=== PATIENT | female | born 1990 | race Caucasian/White ===

== ENCOUNTER 2016-12-25 13:56 | Inpatient (IN) | payer MEDICAID ==
[~2016-12-25] VITALS: Ht 170.2 cm; Wt 62.4 kg
[2016-12-25] MEDS ORDERED: HALOPERIDOL LACTATE 5 MG/ML VIAL IM ONE (18:00)
[2016-12-25] MEDS ORDERED: LORazepam 2 MG/ML VIAL IM ONE (18:00)
[2016-12-25] MEDS ORDERED: DiphenhydrAMINE HCL 50 MG/ML VIAL IM ONE (18:00)
[2016-12-25 18:11] VITALS: BP 106/57
[2016-12-25 18:42] VITALS: BP 91/46
[2016-12-25] MEDS: ZOLPIDEM TARTRATE 10 MG TABLET PO PRN (21:04)
[2016-12-26] MEDS: LORazepam 2 MG TABLET PO PRN ×4 (04:21→20:32)
[2016-12-26] MEDS: NICOTINE 14 MG/24 HOUR PATCH TD SCH (10:10)
[2016-12-26] MEDS ORDERED: PROMETHAZINE HCL 25 MG/ML VIAL IM ONE (10:45)
[2016-12-26 16:08] VITALS: BP 108/70
[2016-12-26] MEDS: PALIPERIDONE 6 MG ER TABLET PO SCH (16:13)
[2016-12-26] MEDS ORDERED: ACETAMINOPHEN 325 MG TABLET PO PRN (19:45)
[2016-12-26] MEDS: ZOLPIDEM TARTRATE 10 MG TABLET PO PRN (21:03)
[2016-12-27 05:49] VITALS: BP 102/92
[2016-12-27 08:28] VITALS: BP 121/79
[2016-12-27] MEDS: LORazepam 2 MG TABLET PO PRN ×3 (08:57→17:31)
[2016-12-27] MEDS: NICOTINE 14 MG/24 HOUR PATCH TD SCH (08:57)
[2016-12-27] MEDS: PALIPERIDONE 6 MG ER TABLET PO SCH (08:57)
[2016-12-27] MEDS: ONDANSETRON HCL 4 MG TABLET PO PRN (17:12)
[2016-12-27 17:35] VITALS: BP 118/70
[2016-12-27] MEDS: ZOLPIDEM TARTRATE 10 MG TABLET PO PRN (21:06)
[2016-12-28] MEDS: LORazepam 2 MG TABLET PO PRN ×4 (00:37→21:54)
[2016-12-28 00:40] VITALS: BP 126/75
[2016-12-28] MEDS: PALIPERIDONE 6 MG ER TABLET PO SCH (08:17)
[2016-12-28] MEDS: NICOTINE 14 MG/24 HOUR PATCH TD SCH (08:17)
[2016-12-28 08:44] VITALS: BP 128/84
[2016-12-28 16:19] VITALS: BP_SYST 131; BP_SYST 144; BP_DIAS 76; BP_DIAS 77
[2016-12-28] MEDS ORDERED: PALI6 PO (19:06)
[2016-12-28] MEDS ORDERED: NICO14T TD (19:06)
[2016-12-28] MEDS ORDERED: ACET-2247 PO (19:06)
[2016-12-28] MEDS ORDERED: ZOLP10 PO (19:06)
[2016-12-28] MEDS ORDERED: LORA2TAB2 PO (19:06)
[2016-12-28] MEDS ORDERED: ONDA4 PO (19:06)
[2016-12-28 21:53] VITALS: BP 138/86
[2016-12-28 22:36] VITALS: BP 129/80
[2016-12-29 06:41] VITALS: BP 125/83
[2016-12-29] MEDS: LORazepam 2 MG TABLET PO PRN ×3 (08:31→20:00)
[2016-12-29] MEDS: NICOTINE 14 MG/24 HOUR PATCH TD SCH (08:31)
[2016-12-29] MEDS: PALIPERIDONE 6 MG ER TABLET PO SCH (08:31)
[2016-12-29] MEDS: AMOX TR/POT CLAV 875 MG/125 MG TABLET PO SCH ×2 (08:31→16:37)
[2016-12-29 08:37] VITALS: BP 118/63
[2016-12-29] MEDS: ONDANSETRON HCL 4 MG TABLET PO PRN (13:49)
[2016-12-29 17:07] VITALS: BP 140/84
[2016-12-30 06:10] VITALS: BP 126/72
[2016-12-30] MEDS: ONDANSETRON HCL 4 MG TABLET PO PRN (06:46)
[2016-12-30 08:22] VITALS: BP 125/82
[2016-12-30] MEDS: AMOX TR/POT CLAV 875 MG/125 MG TABLET PO SCH ×2 (08:35→16:49)
[2016-12-30] MEDS: PALIPERIDONE 6 MG ER TABLET PO SCH (08:35)
[2016-12-30] MEDS: NICOTINE 14 MG/24 HOUR PATCH TD SCH (08:35)
[2016-12-30] MEDS: LORazepam 2 MG TABLET PO PRN ×2 (10:11→16:49)
[2016-12-30 16:39] VITALS: BP 122/75
[2016-12-30] MEDS: ZOLPIDEM TARTRATE 10 MG TABLET PO PRN (21:26)
[2016-12-31 00:04] VITALS: BP 125/75
[2016-12-31] MEDS: LORazepam 2 MG TABLET PO PRN ×4 (00:04→17:53)
[2016-12-31 08:11] VITALS: BP 122/74
[2016-12-31] MEDS: PALIPERIDONE 6 MG ER TABLET PO SCH (08:40)
[2016-12-31] MEDS: AMOX TR/POT CLAV 875 MG/125 MG TABLET PO SCH ×2 (08:40→16:23)
[2016-12-31] MEDS: NICOTINE 14 MG/24 HOUR PATCH TD SCH (08:40)
[2016-12-31 16:11] VITALS: BP 102/61
[2016-12-31] MEDS: BACITRACIN 28.4 GM OINTMENT TP SCH (16:25)
[2016-12-31] MEDS: ONDANSETRON HCL 4 MG TABLET PO PRN (16:44)
[2016-12-31] MEDS: ZOLPIDEM TARTRATE 10 MG TABLET PO PRN (21:27)
[2017-01-01 05:55] VITALS: BP 110/68
[2017-01-01] MEDS: LORazepam 2 MG TABLET PO PRN ×3 (07:22→19:59)
[2017-01-01] MEDS: NICOTINE 14 MG/24 HOUR PATCH TD SCH (08:25)
[2017-01-01] MEDS: AMOX TR/POT CLAV 875 MG/125 MG TABLET PO SCH ×2 (08:25→16:43)
[2017-01-01] MEDS: PALIPERIDONE 6 MG ER TABLET PO SCH (08:25)
[2017-01-01] MEDS: BACITRACIN 28.4 GM OINTMENT TP SCH ×2 (08:26→16:43)
[2017-01-01 09:04] VITALS: BP 151/76
[2017-01-01] MEDS: ONDANSETRON HCL 4 MG TABLET PO PRN (14:43)
[2017-01-01 16:29] VITALS: BP 113/84
[2017-01-02 08:41] VITALS: BP 120/80
[2017-01-02] MEDS: PALIPERIDONE 6 MG ER TABLET PO SCH (09:48)
[2017-01-02] MEDS: AMOX TR/POT CLAV 875 MG/125 MG TABLET PO SCH ×2 (09:49→16:32)
[2017-01-02] MEDS: LORazepam 2 MG TABLET PO PRN ×3 (09:49→18:07)
[2017-01-02] MEDS: BACITRACIN 28.4 GM OINTMENT TP SCH ×2 (09:49→16:32)
[2017-01-02] MEDS: NICOTINE 14 MG/24 HOUR PATCH TD SCH (09:49)
[2017-01-02 16:43] VITALS: BP 114/65
[2017-01-02] MEDS: ONDANSETRON HCL 4 MG TABLET PO PRN (16:55)
[2017-01-02] MEDS: ZOLPIDEM TARTRATE 10 MG TABLET PO PRN (20:50)
[2017-01-03 01:53] VITALS: BP 119/71
[2017-01-03] MEDS: LORazepam 2 MG TABLET PO PRN ×4 (01:54→18:22)
[2017-01-03 07:39] LABS: BASOPHILS % (AUTO) 0.9 % (0.0-2.0); EOSINOPHILS % (AUTO) 1.1 % (1.0-6.0); HEMATOCRIT 40.2 % (36-46); HEMOGLOBIN 13.1 g/dL (12.0-16.0); LYMPHOCYTES # (AUTO) 1.7 K/uL (1.0-4.8); LYMPHOCYTES % (AUTO) 30.2 % (22.0-44.0); MEAN CORPUSCULAR HEMOGLOBIN 28.6 pg (26.0-34.0); MEAN CORPUSCULAR HGB CONC 32.6 G/dL (31.0-37.0); MEAN CORPUSCULAR VOLUME 88 fL (80-100); MONOCYTES # (AUTO) 0.4 K/uL (0.1-1.0); MONOCYTES % (AUTO) 6.5 % (2.0-9.0); NEUTROPHILS # (AUTO) 3.4 K/uL (1.8-7.7); NEUTROPHILS % (AUTO) 61.3 % (40.0-70.0); PLATELET COUNT (AUTO) 259 K/uL (150-450); RED BLOOD CELL COUNT(AUTO) 4.57 MIL/uL (4.00-5.20); RED CELL DISTRIBUTION WIDTH 13.9 % (11.5-14.5); WHITE BLOOD COUNT (AUTO) 5.5 K/uL (4.5-11.0)
[2017-01-03 08:09] LABS: ALANINE AMINOTRANSFERASE 21 U/L (12-78); ALBUMIN 3.7 g/dL (3.4-5.0); ANION GAP 9 mmol/L (8-16); ASPARTATE AMINOTRANSFERASE 12 U/L (15-37); BILIRUBIN,TOTAL 0.3 mg/dL (0.1-1.0); CALCIUM, TOTAL 9.3 mg/dL (8.8-10.5); CARBON DIOXIDE 28 mmol/L (22-29); CHLORIDE 101 mmol/L (98-107); CHOL/HDL RATIO 2.7 (3.9-5.7); GLOMERULAR FILTR. RATE CALC > 60 mL/min (>60); POTASSIUM 4.9 mmol/L (3.5-5.1); SODIUM SERUM 138 mmol/L (136-145); THYROID STIMULATING HORMONE 1.45 uIU/mL (0.36-3.74); TOTAL PROTEIN, SERUM 7.4 g/dL (6.4-8.2); UREA NITROGEN, BLOOD 12 mg/dL (7-18)
[2017-01-03 08:13] VITALS: BP 116/63
[2017-01-03 08:51] LABS: HEMOGLOBIN A1C 4.7 % (4.5-6.2)
[2017-01-03] MEDS: AMOX TR/POT CLAV 875 MG/125 MG TABLET PO SCH ×2 (09:33→16:02)
[2017-01-03] MEDS: PALIPERIDONE 6 MG ER TABLET PO SCH (09:33)
[2017-01-03] MEDS: BACITRACIN 28.4 GM OINTMENT TP SCH ×2 (09:34→16:02)
[2017-01-03] MEDS: NICOTINE 14 MG/24 HOUR PATCH TD SCH (09:34)
[2017-01-03] MEDS: ONDANSETRON HCL 4 MG TABLET PO PRN (10:27)
[2017-01-03 16:19] VITALS: BP 121/83
[2017-01-03] MEDS: ZOLPIDEM TARTRATE 10 MG TABLET PO PRN (23:10)
[2017-01-04 08:15] VITALS: BP 118/66
[2017-01-04] MEDS: PALIPERIDONE 6 MG ER TABLET PO SCH (08:27)
[2017-01-04] MEDS: LORazepam 2 MG TABLET PO PRN ×2 (08:29→14:08)
[2017-01-04] MEDS: NICOTINE 14 MG/24 HOUR PATCH TD SCH (08:30)
[2017-01-04] MEDS: BACITRACIN 28.4 GM OINTMENT TP SCH ×2 (08:30→16:39)
[2017-01-04] MEDS: AMOX TR/POT CLAV 875 MG/125 MG TABLET PO SCH ×2 (09:00→16:39)
[2017-01-04 16:06] VITALS: BP 112/84
[2017-01-04] MEDS: ZOLPIDEM TARTRATE 10 MG TABLET PO PRN (22:01)
[2017-01-04 23:56] VITALS: BP 115/73
[2017-01-04 23:58] VITALS: BP 115/73
[2017-01-05] VITALS: BP 112/84
[2017-01-05] MEDS: LORazepam 2 MG TABLET PO PRN ×2 (00:02→08:32)
[2017-01-05 02:43] VITALS: BP 115/73
[2017-01-05 08:01] VITALS: BP 102/55
[2017-01-05] MEDS: NICOTINE 14 MG/24 HOUR PATCH TD SCH (08:32)
[2017-01-05] MEDS: AMOX TR/POT CLAV 875 MG/125 MG TABLET PO SCH (08:32)
[2017-01-05] MEDS: BACITRACIN 28.4 GM OINTMENT TP SCH (08:32)
[2017-01-05] MEDS: PALIPERIDONE 6 MG ER TABLET PO SCH (08:32)
[2017-01-05] MEDS ORDERED: AMOX1TAB16 PO (10:32)
== END 2017-01-05 13:35 | disposition home or self-care (01) | DRG 750 ==
LOC: B3A 17:26 → B2S 01-04 09:11
PROVIDERS: ADMIT Psychiatry & Neurology Child & Adolescent Psychiatry; ATTEND Psychiatry & Neurology Child & Adolescent Psychiatry
DX: F25.0 Schizoaffective disorder, bipolar type (principal); F29 Unspecified psychosis not due to a substance or known physiological condition; F15.10 Other stimulant abuse, uncomplicated; F12.10 Cannabis abuse, uncomplicated; F41.9 Anxiety disorder, unspecified; F10.10 Alcohol abuse, uncomplicated; Z88.2 Allergy status to sulfonamides; Z88.8 Allergy status to other drugs, medicaments and biological substances; Z71.41 Alcohol abuse counseling and surveillance of alcoholic; Z71.51 Drug abuse counseling and surveillance of drug abuser
CPT/HCPCS: 83036; 84439; 84443; 87081; J1200; J1630; J2060; J2550; Q0162

== ENCOUNTER 2016-12-28 17:33 | Emergency (ER) | payer MEDICAID, OTHER ==
[~2016-12-28] VITALS: Ht 170.2 cm; Wt 59.1 kg
[2016-12-28] MEDS ORDERED: NICO14T TD (19:06)
[2016-12-28] MEDS ORDERED: ZOLP10 PO (19:06)
[2016-12-28] MEDS ORDERED: LORA2TAB2 PO (19:06)
[2016-12-28] MEDS ORDERED: ONDA4 PO (19:06)
[2016-12-28] MEDS ORDERED: ACET-2247 PO (19:06)
[2016-12-28] MEDS ORDERED: PALI6 PO (19:06)
[2016-12-28] MEDS ORDERED: CeFAZolin 1 GM/DEXTROSE 50 ML IV ONE (19:15)
[2016-12-28] MEDS ORDERED: SODIUM CHLORIDE 0.9% 1,000 ML IV ONE (19:15)
[2016-12-28 19:45] LABS: BASOPHILS # (AUTO) 0.04 K/uL (0.00-0.20); BASOPHILS % (AUTO) 0.4 % (0.0-2.0); EOSINOPHILS # (AUTO) 0.09 K/uL (0.00-0.70); EOSINOPHILS % (AUTO) 1.02 % (1.0-6.0); LYMPHOCYTES # (AUTO) 2.3 K/uL (1.0-4.8); LYMPHOCYTES % (AUTO) 26.8 % (22.0-44.0); MEAN CORPUSCULAR HGB CONC 33.4 G/dL (31.0-37.0); MEAN CORPUSCULAR VOLUME 87 fL (80-100); MONOCYTES # (AUTO) 0.5 K/uL (0.1-1.0); MONOCYTES % (AUTO) 5.5 % (2.0-9.0); NEUTROPHILS # (AUTO) 5.6 K/uL (1.8-7.7); NEUTROPHILS % (AUTO) 66.3 % (40.0-70.0); PLATELET COUNT (AUTO) 304 K/uL (150-450); RED BLOOD CELL COUNT(AUTO) 4.15 MIL/uL (4.00-5.20); RED CELL DISTRIBUTION WIDTH 13.7 % (11.5-14.5); WHITE BLOOD COUNT (AUTO) 8.5 K/uL (4.5-11.0)
[2016-12-28 19:46] LABS: ANION GAP 8 mmol/L (8-16); CALCIUM, TOTAL 9.4 mg/dL (8.8-10.5); CARBON DIOXIDE 30 mmol/L (22-29); CHLORIDE 103 mmol/L (98-107); CREATININE 0.55 mg/dL (0.60-1.30); GLOMERULAR FILTR. RATE CALC > 60 mL/min (>60); POTASSIUM 3.8 mmol/L (3.5-5.1); SODIUM SERUM 141 mmol/L (136-145); UREA NITROGEN, BLOOD 13 mg/dL (7-18)
[2016-12-28 19:51] LABS: ALANINE AMINOTRANSFERASE 21 U/L (12-78); ALBUMIN 3.4 g/dL (3.4-5.0); ASPARTATE AMINOTRANSFERASE 13 U/L (15-37); BILIRUBIN,TOTAL 0.2 mg/dL (0.1-1.0); TOTAL PROTEIN, SERUM 7.3 g/dL (6.4-8.2)
[2016-12-28] MEDS ORDERED: KETOROLAC TROMETHAMINE 30 MG/ML VIAL IVP ONE (20:00)
[2016-12-28] MEDS ORDERED: TraMADol HCL 50 MG TABLET PO ONE (20:30)
[2016-12-28 20:46] VITALS: BP 109/73
== END 2016-12-28 21:26 | disposition home or self-care (01) ==
LOC: EMS 17:35
DX: L03.115 Cellulitis of right lower limb (principal); Z88.2 Allergy status to sulfonamides; Z91.013 Allergy to seafood
CPT/HCPCS: 36415; 80053; 84703; 85025; 87040; 96365; 96375; 99284; J0690; J1885; J7030

== ENCOUNTER 2019-06-04 21:54 | Inpatient (IN) | payer MEDICAID, OTHER ==
[~2019-06-04] VITALS: Ht 175.3 cm; Wt 59.9 kg
[~2019-06-04 21:54] MED LIST: AMOX1TAB16 PO; PALI6 PO
[2019-06-04] MEDS ORDERED: QUET200T PO (22:32)
[2019-06-04] MEDS ORDERED: RISP2 PO (22:32)
[2019-06-04] MEDS ORDERED: HYDR-4031 PO (22:32)
[2019-06-04] MEDS ORDERED: QUET100T PO (22:32)
[2019-06-04] MEDS ORDERED: TRAZ-252 PO (22:32)
[2019-06-04 23:06] LABS: BASOPHILS % (AUTO) 0.6 % (0.0-2.0); EOSINOPHILS % (AUTO) 0.2 % (1.0-6.0); HEMATOCRIT 37.7 % (36-46); HEMOGLOBIN 12.5 g/dL (12.0-16.0); LYMPHOCYTES # (AUTO) 1.7 K/uL (1.0-4.8); LYMPHOCYTES % (AUTO) 19.7 % (22.0-44.0); MEAN CORPUSCULAR HEMOGLOBIN 28.6 pg (26.0-34.0); MEAN CORPUSCULAR HGB CONC 33.2 G/dL (31.0-37.0); MEAN CORPUSCULAR VOLUME 86 fL (80-100); MONOCYTES # (AUTO) 0.7 K/uL (0.1-1.0); MONOCYTES % (AUTO) 7.4 % (2.0-9.0); NEUTROPHILS # (AUTO) 6.4 K/uL (1.8-7.7); NEUTROPHILS % (AUTO) 72.1 % (40.0-70.0); PLATELET COUNT (AUTO) 192 K/uL (150-450); RED BLOOD CELL COUNT(AUTO) 4.38 MIL/uL (4.00-5.20); RED CELL DISTRIBUTION WIDTH 15.2 % (11.5-14.5)
[2019-06-04 23:15] LABS: AMPHET/METH SCREEN,URINE NEGATIVE (NEGATIVE); APPEARANCE,URINE CLEAR (CLEAR); BARBITURATE SCREEN, URINE NEGATIVE (NEGATIVE); BENZODIAZEPINES SCREEN,URINE NEGATIVE (NEGATIVE); BILIRUBIN,URINE NEGATIVE (NEGATIVE); CANNABINOID SCREEN,URINE NEGATIVE (NEGATIVE); COCAINE SCREEN,URINE NEGATIVE (NEGATIVE); GLUCOSE, URINE (UA) NEGATIVE (NEGATIVE); KETONES,URINE NEGATIVE (NEGATIVE); LEUKOCYTE ESTERASE ,URINE NEGATIVE (NEGATIVE); METHADONE SCREEN, URINE NEGATIVE (NEGATIVE); NITRATE,URINE NEGATIVE (NEGATIVE); OCCULT BLOOD,URINE NEGATIVE (NEGATIVE); OPIATE SCREEN,URINE NEGATIVE (NEGATIVE); PROTEIN,URINE NEGATIVE (NEGATIVE); UROBILINOGEN,URINE 0.2 mg/dL (<=1.0)
[2019-06-04 23:16] LABS: PHENCYCLIDINE SCREEN,URINE NEGATIVE (NEGATIVE)
[2019-06-04 23:18] LABS: ANION GAP 11 mmol/L (8-16); CARBON DIOXIDE 26 mmol/L (22-29); CHLORIDE 101 mmol/L (98-107); CREATININE 0.52 mg/dL (0.60-1.30); GLOMERULAR FILTR. RATE CALC > 60 mL/min (>60); GLUCOSE,RANDOM 90 mg/dL (70-110); POTASSIUM 4.2 mmol/L (3.5-5.1); SODIUM SERUM 138 mmol/L (136-145); UREA NITROGEN, BLOOD 13 mg/dL (7-18)
[2019-06-04 23:23] LABS: SALICYLATE 3.7 mg/dL (2.8-20.0)
[2019-06-04 23:25] LABS: ACETAMINOPHEN < 2 mcg/mL (10-30); ALANINE AMINOTRANSFERASE 48 U/L (12-78); ALBUMIN 4.2 g/dL (3.4-5.0); ALKALINE PHOSPHATASE 59 U/L (46-116); ASPARTATE AMINOTRANSFERASE 23 U/L (15-37); BILIRUBIN,TOTAL 0.3 mg/dL (0.1-1.0); CREATINE KINASE, TOTAL ONLY 61 U/L (26-192); TOTAL PROTEIN, SERUM 7.6 g/dL (6.4-8.2)
[2019-06-04] MEDS ORDERED: QUEtiapine FUMARATE 100 MG TABLET PO PRN (23:30)
[2019-06-04] MEDS ORDERED: ZOLPIDEM TARTRATE 10 MG TABLET PO PRN (23:30)
[2019-06-04] MEDS ORDERED: LORazepam 2 MG TABLET PO PRN (23:30)
[2019-06-05] MEDS ORDERED: 0.9% SODIUM CHLORIDE 10 ML SYRINGE IVP PRN
[2019-06-05] MEDS ORDERED: ONDANSETRON HCL 4 MG/2 ML VIAL IVP PRN
[2019-06-05 02:45] VITALS: BP 100/60
[2019-06-05] MEDS ORDERED: INFLUENZA VIRUS VACCINE QVS 2019-20 (3YR+)/PF 60 MCG/0.5 ML SYRINGE IM ONE (06:30)
[2019-06-05 07:38] LABS: CHOL/HDL RATIO 2.8 (3.9-5.7)
[2019-06-05] MEDS ORDERED: ACETAMINOPHEN 325 MG TABLET PO PRN ×2 (08:30)
[2019-06-05] MEDS ORDERED: PETROLATUM,WHITE 28 GM JELLY TP PRN (08:30)
[2019-06-05] MEDS ORDERED: NICOTINE 14 MG/24 HOUR PATCH TD PRN (08:30)
[2019-06-05] MEDS ORDERED: GuaiFENesin/D-METHORPHAN [SUGAR-FREE] 200-20MG/10 ML SYRUP UDCUP PO PRN (08:30)
[2019-06-05] MEDS ORDERED: ONDANSETRON HCL 4 MG TABLET PO PRN (08:30)
[2019-06-05] MEDS ORDERED: CloNIDine HCL 0.1 MG TABLET PO PRN (08:30)
[2019-06-05] MEDS ORDERED: MAG HYDROX/AL HYDROX/SIMETH ES 30 ML SUSPENSION UDCUP PO PRN (08:30)
[2019-06-05] MEDS ORDERED: DOCUSATE SODIUM 100 MG CAPSULE PO PRN (08:30)
[2019-06-05] MEDS ORDERED: LOPERAMIDE HCL 2 MG CAPSULE PO PRN (08:30)
[2019-06-05] MEDS ORDERED: IBUPROFEN 400 MG TABLET PO PRN (08:30)
[2019-06-05] MEDS ORDERED: MAGNESIUM HYDROXIDE SUSPENSION 30 ML UDCUP PO PRN (08:30)
[2019-06-05] MEDS ORDERED: ALBUTEROL SULFATE HFA 90 MCG/PUFF 8 GM INHALER IH PRN (08:30)
[2019-06-05 08:40] VITALS: BP 103/60
[2019-06-05] MEDS: HydrOXYzine PAMOATE 25 MG CAPSULE PO SCH ×2 (11:35→16:07)
[2019-06-05] MEDS: QUEtiapine FUMARATE 200 MG TABLET PO SCH ×2 (11:35→20:05)
[2019-06-05 16:13] VITALS: BP 110/61
[2019-06-05] MEDS: TraZODone HCL 50 MG TABLET PO SCH (20:06)
[2019-06-06 00:20] VITALS: BP 120/81
[2019-06-06] MEDS: HydrOXYzine PAMOATE 25 MG CAPSULE PO SCH ×2 (08:55→16:56)
[2019-06-06] MEDS: QUEtiapine FUMARATE 200 MG TABLET PO SCH ×2 (08:55→20:01)
[2019-06-06 09:15] VITALS: BP 124/68
[2019-06-06 16:32] VITALS: BP 110/73
[2019-06-06] MEDS: TraZODone HCL 50 MG TABLET PO SCH (20:01)
[2019-06-07 00:09] VITALS: BP 125/81
[2019-06-07 08:10] VITALS: BP 100/53
[2019-06-07] MEDS: QUEtiapine FUMARATE 200 MG TABLET PO SCH ×2 (08:13→20:08)
[2019-06-07] MEDS: HydrOXYzine PAMOATE 25 MG CAPSULE PO SCH ×2 (08:13→16:06)
[2019-06-07 16:06] VITALS: BP 102/65
[2019-06-07] MEDS: TraZODone HCL 50 MG TABLET PO SCH (20:08)
[2019-06-08 06:15] VITALS: BP 100/66
== END 2019-06-08 07:15 | disposition home or self-care (01) | DRG 750 ==
LOC: EMS 21:56 → B2S 06-05 00:01
DX: F25.0 Schizoaffective disorder, bipolar type (principal); I95.9 Hypotension, unspecified; R45.851 Suicidal ideations; F11.10 Opioid abuse, uncomplicated; Y90.9 Presence of alcohol in blood, level not specified; F10.10 Alcohol abuse, uncomplicated; F41.9 Anxiety disorder, unspecified; Z91.013 Allergy to seafood; Z91.018 Allergy to other foods; Z71.41 Alcohol abuse counseling and surveillance of alcoholic; Z71.51 Drug abuse counseling and surveillance of drug abuser; Z88.1 Allergy status to other antibiotic agents; Z91.5 Personal history of self-harm
CPT/HCPCS: 83735; G0480; G0481